=== PATIENT | female | born 1945 | race American Indian/Alaskan Native ===

== ENCOUNTER 2017-07-05 15:51 | Outpatient (CLI) | payer MEDICARE ==
[2017-07-05 17:48] LABS: Hematocrit 36.5 % (30.3-42.9); Hemoglobin 11.7 gm/dl (10.1-14.3); Mean Corpuscular HGB Conc 32 % (30-34); Mean Corpuscular Hemoglobin 33 pg (28-32); Mean Corpuscular Volume 103 fl (79-97); Red Blood Count 3.55 M/mm3 (3.65-5.03); Red Cell Distribution Width 15.9 % (13.2-15.2); White Blood Count 5.3 K/mm3 (4.5-11.0)
[2017-07-05 18:00] LABS: Albumin 4.2 g/dL (3.9-5); Albumin/Globulin Ratio 1.1 %; Bilirubin,Total 0.4 mg/dL (0.1-1.2); Calcium 10.1 mg/dL (8.4-10.2); Chloride 93.4 mmol/L (98-107); Platelet Count 134 K/mm3 (140-440); Potassium 5.2 mmol/L (3.6-5.0)
[2017-07-05 18:18] LABS: Erythrocyte Sedimentation Rate 42 mm/Hr (0-20)
[2017-07-07 22:15] LABS: Vitamin D, 25-OH, Total 14 ng/mL (30-100)
== END 2017-07-05 15:52 | disposition home or self-care (01) ==
LOC: MRI 15:51
PROVIDERS: ATTEND Specialist
DX: D32.9 Benign neoplasm of meninges, unspecified (principal); H47.20 Unspecified optic atrophy; I63.9 Cerebral infarction, unspecified; G45.9 Transient cerebral ischemic attack, unspecified
CPT/HCPCS: 36415; 80053; 82164; 82306; 82607; 83921; 84443; 85027; 85652; 86038; 86592

== ENCOUNTER 2018-05-18 07:20 | Outpatient (CLI) | payer MEDICARE ==
--- NOTE | 2018-05-18 08:33 | Cat Scan Report ---
CT HEAD WITHOUT CONTRAST: HISTORY: Meningioma. TECHNIQUE: Sequential 2.5mm CT images. COMPARISON: 02/10/17. FINDINGS: The 1.5 cm calcified extra-axial mass in the anterior cranial fossa near midline is unchanged in size and contour since 02/10/17. No additional mass has developed. No evidence for hemorrhage, acute ischemia or extra axial fluid collection. Mild nonspecific chronic white matter changes are stable. No chronic infarct. Ventricular size remains within normal limits. The calvarium is intact. The sinuses and mastoid air cells are well-aerated. IMPRESSION: No change in the anterior cranial fossa meningioma.
== END 2018-05-18 07:21 | disposition home or self-care (01) ==
LOC: CT 07:20
PROVIDERS: ATTEND Specialist
DX: D32.0 Benign neoplasm of cerebral meninges (principal); I12.0 Hypertensive chronic kidney disease with stage 5 chronic kidney disease or end stage renal disease; N18.6 End stage renal disease; I25.10 Atherosclerotic heart disease of native coronary artery without angina pectoris; K21.9 Gastro-esophageal reflux disease without esophagitis; Z87.891 Personal history of nicotine dependence; Z90.49 Acquired absence of other specified parts of digestive tract
CPT/HCPCS: 70450

== ENCOUNTER 2018-09-26 04:05 | Emergency (ER) | payer MEDICARE ==
--- NOTE | 2018-09-26 05:14 | XRay Report ---
FINAL REPORT EXAM: XR FOOT 2V RT HISTORY: foot deformity TECHNIQUE: AP and lateral views of the right foot were submitted. FINDINGS: There are acute transverse nondisplaced fractures through the mid shafts of the 2nd and 3rd metatarsa ls. There are no additional fractures. There is a mild hallux valgus deformity of the 1st metatarsal phalangeal joint. There is prominent soft tissue swelling overlying the dorsal aspect of the entire f oot. IMPRESSION: Acute nondisplaced transverse fractures through the mid shafts of the 2nd and 3rd metatarsals with ex tensive dorsal overlying soft tissue swelling. Hallux valgus deformity.
[2018-09-26] MEDS ORDERED: MORPHINE IV ONE (07:39)
[2018-09-26] MEDS ORDERED: ZOFRAN IV ONE (07:39)
--- NOTE | 2018-09-26 07:48 | Emergency Department Report ---
ED Lower Extremity HPI - General Chief Complaint: Extremity Injury, Lower Stated Complaint: RT FOOT PAIN Time Seen by Provider: 09/26/18 07:38 Source: EMS Mode of arrival: Stretcher Limitations: No Limitations - History of Present Illness Initial Comments: Mrs. Sherman is a 73 yo female with hx of ESRD on HD MWF, CAD, HTN who presents with right foot injury. She dropped a heavy board on her right foot. THe board is in place to keep her from falling out of bed. She has severe pain and swelling at the right foot. NO other injuries. She has been in good health. Did obtain dialysis yesterday. She does take Plavix. Complaint: foot injury -: Sudden, This morning Injury: Foot: Right Type of Injury: blunt Place: home Severity: severe Severity scale (0 -10): 10 Worsens With: movement, palpation Context: direct blow Associated Symptoms: swelling, unable to bear weight - Related Data Home Medications Medication Instructions Recorded Confirmed Last Taken Calcium Acetate 667 mg PO DAILY #0 11/05/16 02/09/17 Unknown Lisinopril [Zestril] 40 mg PO DAILY #0 11/05/16 02/09/17 Unknown Oxycodone HCl [oxyCODONE TAB] 10 mg PO TID #0 11/05/16 02/09/17 Unknown Sensipar 30 mg PO DAILY 11/05/16 02/09/17 Unknown Vistaril 50 mg PO TID 11/05/16 02/09/17 Unknown traMADol [Ultram 50 MG tab] 50 mg PO BID #0 11/05/16 02/09/17 Unknown Nitroglycerin [Nitrostat] 0.4 mg PO PRN PRN 02/09/17 02/09/17 Unknown oxyCODONE /ACETAMINOPHEN [Percocet 1 tab PO Q6H PRN 02/09/17 02/09/17 Unknown 5/325 mg] Previous Rx's Medication Instructions Recorded Last Taken Type Allopurinol 100 mg PO DAILY #30 02/13/17 Unknown Rx AtorvaSTATin [Lipitor] 20 mg PO HS #30 tablet 02/13/17 Unknown Rx Carvedilol [Coreg] 12.5 mg PO DAILY #60 tablet 02/13/17 Unknown Rx Cinacalcet [Sensipar] 30 mg PO QDAY tablet 02/13/17 Unknown Rx Folic Acid/Vit Bcomp&C/Cu/Znox 1 each PO QDAY tablet 02/13/17 Unknown Rx [Folbee Plus Cz] ISOSORBIDE MONOnitrate [Imdur ER] 120 mg PO DAILY #30 tablet 02/13/17 Unknown Rx Levothyroxine 112 mcg PO DAILY #30 02/13/17 Unknown Rx Meclizine [Antivert] 25 mg PO TID tablet 02/13/17 Unknown Rx Pantoprazole [Protonix TAB] 40 mg PO DAILY #30 tablet 02/13/17 Unknown Rx Valsartan [Diovan] 320 mg PO QDAY #30 tablet 02/13/17 Unknown Rx amLODIPine [Norvasc] 10 mg PO QDAY #30 tablet 02/13/17 Unknown Rx cloNIDine [Catapres] 0.2 mg PO TID #90 tablet 02/13/17 Unknown Rx oxyCODONE [Roxicodone TAB] 10 mg PO TID #14 tablet 02/13/17 Unknown Rx HYDROcodone/APAP 5-325 [Harrod 1 each PO Q6HR PRN #15 tablet 09/26/18 Unknown Rx 5/325] Allergies Allergy/AdvReac Type Severity Reaction Status Date / Time aspirin Allergy Unknown Verified 11/19/16 07:58 Penicillins Allergy Unknown Verified 11/18/16 15:12 shellfish derived Allergy Unknown Verified 11/18/16 15:12 ED Review of Systems ROS: Stated complaint: RT FOOT PAIN Other details as noted in HPI Comment: All other systems reviewed and negative Constitutional: denies: fever, malaise Cardiovascular: denies: chest pain ED Past Medical Hx - Past Medical History Previous Medical History?: Yes Hx Hypertension: Yes Hx Heart Attack/AMI: Yes (2012) Hx GERD: Yes Hx Renal Disease: Yes (ON DIALYSIS, MWF) Hx Seizures: No Hx Asthma: No Additional medical history: Gout, pancreatitis, brain tumor - Surgical History Past Surgical History?: Yes Hx Coronary Stent: Yes (9) Hx Pacemaker: No Hx Cholecystectomy: Yes Hx Breast Surgery: Yes (Right mastectomy) Additional Surgical History: Cardiac Stent x9, hysterectomy, tonsillectomy, hemorrhoidectomy - Social History Smoking Status: Unknown if ever smoked Substance Use Type: None - Medications Home Medications: Home Medications Medication Instructions Recorded Confirmed Last Taken Type Calcium Acetate 667 mg PO DAILY #0 11/05/16 02/09/17 Unknown History Lisinopril [Zestril] 40 mg PO DAILY #0 11/05/16 02/09/17 Unknown History Oxycodone HCl [oxyCODONE TAB] 10 mg PO TID #0 11/05/16 02/09/17 Unknown History Sensipar 30 mg PO DAILY 11/05/16 02/09/17 Unknown History Vistaril 50 mg PO TID 11/05/16 02/09/17 Unknown History traMADol [Ultram 50 MG tab] 50 mg PO BID #0 11/05/16 02/09/17 Unknown History Nitroglycerin [Nitrostat] 0.4 mg PO PRN PRN 02/09/17 02/09/17 Unknown History oxyCODONE /ACETAMINOPHEN [Percocet 1 tab PO Q6H PRN 02/09/17 02/09/17 Unknown History 5/325 mg] Allopurinol 100 mg PO DAILY #30 02/13/17 Unknown Rx AtorvaSTATin [Lipitor] 20 mg PO HS #30 tablet 02/13/17 Unknown Rx Carvedilol [Coreg] 12.5 mg PO DAILY #60 tablet 02/13/17 Unknown Rx Cinacalcet [Sensipar] 30 mg PO QDAY tablet 02/13/17 Unknown Rx Folic Acid/Vit Bcomp&C/Cu/Znox 1 each PO QDAY tablet 02/13/17 Unknown Rx [Folbee Plus Cz] ISOSORBIDE MONOnitrate [Imdur ER] 120 mg PO DAILY #30 tablet 02/13/17 Unknown Rx Levothyroxine 112 mcg PO DAILY #30 02/13/17 Unknown Rx Meclizine [Antivert] 25 mg PO TID tablet 02/13/17 Unknown Rx Pantoprazole [Protonix TAB] 40 mg PO DAILY #30 tablet 02/13/17 Unknown Rx Valsartan [Diovan] 320 mg PO QDAY #30 tablet 02/13/17 Unknown Rx amLODIPine [Norvasc] 10 mg PO QDAY #30 tablet 02/13/17 Unknown Rx cloNIDine [Catapres] 0.2 mg PO TID #90 tablet 02/13/17 Unknown Rx oxyCODONE [Roxicodone TAB] 10 mg PO TID #14 tablet 02/13/17 Unknown Rx HYDROcodone/APAP 5-325 [Harrod 1 each PO Q6HR PRN #15 tablet 09/26/18 Unknown Rx 5/325] ED Physical Exam - General Limitations: No Limitations General appearance: alert, in no apparent distress, other (holding the left lower extremity and severe pain) - Head Head exam: Present: atraumatic, normocephalic - Eye Eye exam: Present: normal appearance - ENT ENT exam: Present: mucous membranes moist - Neck Neck exam: Present: normal inspection, full ROM. Absent: tenderness, meningismus - Respiratory Respiratory exam: Present: normal lung sounds bilaterally. Absent: respiratory distress - Cardiovascular Cardiovascular Exam: Present: regular rate, normal rhythm, normal heart sounds. Absent: rubs, gallop - GI/Abdominal GI/Abdominal exam: Present: soft. Absent: distended, tenderness, guarding, rebound - Extremities Exam Extremities exam: Present: other (right foot: Dorsal significant soft tissue swelling hematoma with tenderness to palpation, no ankle tenderness, no knee tenderness intact pedal pulse,) - Neurological Exam Neurological exam: Present: alert, oriented X3 - Psychiatric Psychiatric exam: Present: normal affect, normal mood - Skin Skin exam: Present: warm, dry, intact ED Course Vital Signs 09/26/18 04:22 Temperature 99.9 F H Pulse Rate 87 Respiratory 18 Rate Blood Pressure 208/103 O2 Sat by Pulse 98 Oximetry ED Lower Extremity MDM - Radiology Data Radiology results: report reviewed, image reviewed Nondisplaced mid fractures of the second and third metatarsals on right foot - Medical Decision Making Closed nondisplaced fractures of the second and third metatarsals on Right foot. Right posterior splint was applied to the affected extremity under my supervision. After application the extremity was neurovascularly intact with acceptable alignment. Fortunately I do not anticipate need for surgical intervention. Full fracture care was provided. Patient is mostly nonweightbearing. She is able to walk. However she walks sparingly. She uses a wheelchair because she explained that she had severe physical deconditioning after prolonged hospitalizations. Her son is her caregiver. She also has a grandson who also assists with her ADLs. She'll be discharged home. Give her referral to orthopedic surgeon to follow up in 2 weeks. She understands that she is not allowed to weight-bear on the extremity. I have provided prescriptions Harrod for pain relief. Critical care attestation.: If time is entered above; I have spent that time in minutes in the direct care of this critically ill patient, excluding procedure time. ED Disposition Clinical Impression: Metatarsal fracture, Foot fracture, right, Fracture of second metatarsal bone of right foot, Fracture of third metatarsal bone of right foot Disposition: TO HOME OR SELFCARE Is pt being admited?: No Does the pt Need Aspirin: No Condition: Stable Instructions: Foot Fracture in Adults (ED) Additional Instructions: Please follow up with orthopedic surgeon in 1-2 weeks. Please do not put any weight on the right foot. Prescriptions: HYDROcodone/APAP 5-325 [Harrod 5/325] 1 each PO Q6HR PRN #15 tablet PRN Reason: Pain Referrals: SHAI CORLEY MD [Staff Physician] - 7-10 days
[2018-09-26] MEDS ORDERED: BENADRYL IV ONE (07:52)
[2018-09-26] MEDS ORDERED: BENADRYL ONE (07:55)
[2018-09-26] MEDS ORDERED: NORCO 5/325 PO ONE (08:34)
[2018-09-26 09:28] VITALS: BP 210/94
== END 2018-09-26 10:46 | disposition home or self-care (01) ==
LOC: ED 04:05
DX: S92.331A Displaced fracture of third metatarsal bone, right foot, initial encounter for closed fracture (principal); I10 Essential (primary) hypertension; I25.2 Old myocardial infarction; K21.9 Gastro-esophageal reflux disease without esophagitis; M10.9 Gout, unspecified; Z95.5 Presence of coronary angioplasty implant and graft; Z90.49 Acquired absence of other specified parts of digestive tract; Z95.818 Presence of other cardiac implants and grafts; Z90.710 Acquired absence of both cervix and uterus; Z90.89 Acquired absence of other organs; Z88.6 Allergy status to analgesic agent; Z91.013 Allergy to seafood; Z88.0 Allergy status to penicillin; Z79.899 Other long term (current) drug therapy; Z99.2 Dependence on renal dialysis; W20.8XXA Other cause of strike by thrown, projected or falling object, initial encounter; Y93.89 Activity, other specified; Y99.8 Other external cause status; Y92.019 Unspecified place in single-family (private) house as the place of occurrence of the external cause
CPT/HCPCS: 29515; 73620; 96374; 96375; 99284; J1200; J2270; J2405